=== PATIENT | male | born 1975 | race African-American/Black ===

== ENCOUNTER 2017-01-06 13:20 | Emergency (ER) | payer MEDICAID ==
--- NOTE | 2017-01-06 17:28 | Emergency Department Report ---
ED Lower Extremity HPI - General Chief Complaint: Extremity Injury, Lower Stated Complaint: LEFT KNEE PAIN Time Seen by Provider: 01/06/17 17:01 Source: patient Mode of arrival: Ambulatory Limitations: No Limitations - History of Present Illness Initial Comments: Patient here reported that he has left knee pain after falling 2 weeks ago. He said he tripped and slipped and fell into a hole. Patient reports the pain is 10 out of 10. Denies numbness or tingling to extremities. Denies any redness or swelling. He said he took [id number] medication and he got minimal relief. Pain is located to her anterior knee.. Complaint: knee injury Onset/Timin -: week(s) Injury: Knee: Left (Pain) Type of Injury: blunt Place: work Severity: severe Severity scale (0 -10): 10 Improves With: NSAID Worsens With: weight bearing, movement, palpation Context: fall Associated Symptoms: able to partially bear weight, ambulatory. denies: snap/ pop sensation, swelling, numbness, tingling Treatments Prior to Arrival: NSAIDS - Related Data Previous Rx's Medication Instructions Recorded Last Taken Type Ibuprofen [Motrin] 600 mg PO Q8H PRN #21 tablet 01/06/17 Unknown Rx Allergies Allergy/AdvReac Type Severity Reaction Status Date / Time No Known Allergies Allergy Verified 01/22/15 12:11 ED Review of Systems ROS: Stated complaint: LEFT KNEE PAIN Other details as noted in HPI Comment: All other systems reviewed and negative Constitutional: denies: chills, fever Respiratory: no symptoms reported Cardiovascular: denies: chest pain, palpitations, edema, syncope Musculoskeletal: arthralgia. denies: back pain, joint swelling Skin: denies: rash Neurological: abnormal gait (limpng lt LE). denies: headache, weakness, numbness, paresthesias ED Past Medical Hx - Past Medical History Previous Medical History?: Yes Hx Seizures: Yes Additional medical history: CHRONIC BACK PAIN - Surgical History Past Surgical History?: Yes Additional Surgical History: LEFT ARM SURGERY - Family History Family history: no significant - Social History Smoking Status: Never Smoker Substance Use Type: Non Opiate Pain - Medications Home Medications: Home Medications Medication Instructions Recorded Confirmed Last Taken Type Ibuprofen [Motrin] 600 mg PO Q8H PRN #21 tablet 01/06/17 Unknown Rx ED Physical Exam - General Limitations: No Limitations General appearance: alert, in no apparent distress - Head Head exam: Present: atraumatic, normocephalic, normal inspection - Expanded Head Exam Expanded Head exam: Absent: laceration, abrasion, contusion, hematoma, racoon eyes, crowder's sign, general tenderness, tenderness of temporal artery, CSF rhinorrhea , CSF otorrhea - Eye Eye exam: Present: normal appearance, PERRL, EOMI Pupils: Present: normal accommodation - ENT ENT exam: Present: normal exam, normal orophraynx, mucous membranes moist, TM's normal bilaterally, normal external ear exam - Neck Neck exam: Present: normal inspection, full ROM. Absent: tenderness, meningismus, lymphadenopathy - Respiratory Respiratory exam: Present: normal lung sounds bilaterally. Absent: respiratory distress - Cardiovascular Cardiovascular Exam: Present: regular rate, normal rhythm, normal heart sounds - Extremities Exam Extremities exam: Present: normal inspection, full ROM, tenderness, normal capillary refill. Absent: pedal edema, joint swelling, calf tenderness - Expanded Lower Extremity Exam Left Hip exam: Present: normal inspection, full ROM, pelvic stability. Absent: tenderness, swelling, abrasion, laceration, ecchymosis, deformity, crepidus, dislocation, erythema, external rotation, internal rotation, shortening Upper Leg exam: Present: normal inspection, full ROM. Absent: tenderness, swelling, abrasion, laceration, ecchymosis, deformity, crepidus, dislocation, erythema Knee exam: Present: normal inspection, full ROM, tenderness (anterior knee), full knee extension. Absent: swelling, abrasion, laceration, ecchymosis, deformity, crepidus, dislocation, erythema, effusion, pain w/ pronation/ supination, posterior draw sign, pain/laxity with valgus, pain/laxity with varus Lower Leg exam: Present: normal inspection, full ROM. Absent: tenderness, swelling, abrasion, laceration, ecchymosis, deformity, crepidus, dislocation, erythema, palpable cord, Carmen's sign Ankle exam: Present: normal inspection, full ROM. Absent: tenderness, swelling , abrasion, laceration, ecchymosis, deformity, crepidus, dislocation, erythema Foot/Toe exam: Present: normal inspection, full ROM. Absent: tenderness, swelling, abrasion, laceration, ecchymosis, deformity, crepidus, dislocation, erythema, amputation, puncture wound, foreign body, calcaneal tenderness, tenderness at base of 5th metatarsal, nail avulsion, subungual hematoma Neuro vascular tendon exam: Present: no vascular compromise. Absent: pulse deficit, abnormal cap refill, motor deficit, sensory deficit, tendon deficit, extremity cold to touch, pallor, abnormal 2-point discrimination, decreased fine /light touch, foot drop, peroneal nerve deficit, significant pain with passive ROM of distal joint Gait: Positive: observed and limited by pain - Neurological Exam Neurological exam: Present: alert, oriented X3, abnormal gait (Limping from knee pain), reflexes normal. Absent: motor sensory deficit - Psychiatric Psychiatric exam: Present: normal affect, normal mood - Skin Skin exam: Present: warm, dry, intact, normal color. Absent: rash ED Course Vital Signs 01/06/17 01/06/17 14:50 17:44 Temperature 98.3 F Pulse Rate 74 99 H Respiratory 20 16 Rate Blood Pressure 148/99 Blood Pressure 133/90 [Left] O2 Sat by Pulse 100 99 Oximetry - Reevaluation(s) Reevaluation #1: 01/06/17 19:13 Patient received Motrin 800 mg in emergency room for knee pain - Orthopedic Splinting/Casting Injury #1 Side: left Lower Extremity Injury Location: knee Lower Extremity Immobilizer: knee immobilizer ED Lower Extremity MDM - Radiology Data Radiology results: report reviewed xray report revealed no acute fx or dislocation - Medical Decision Making ED course: Patient status post fall with knee pain 2 weeks. Patient given Motrin 800 mg in emergency room to manage pain. See procedure note for details on splinting. I discussed with patient that although his x-ray is negative he could have ligament injury which does not appear on x-rays. Discussed with him he will need to follow-up with orthopedic doctor for further treatment and evaluation and possible MRI. She was understanding of discharge instruction discharged home in stable condition with prescription for Motrin. Critical care attestation.: If time is entered above; I have spent that time in minutes in the direct care of this critically ill patient, excluding procedure time. ED Disposition Clinical Impression: Knee pain, left anterior Disposition: DISCHARGED TO HOME OR SELFCARE Is pt being admited?: No Does the pt Need Aspirin: No Condition: Stable Instructions: Arthralgia (ED), Knee Pain (ED), Knee Exercises (GEN), Knee Immobilizer (ED) Additional Instructions: Please follow up with orthopedic doctor and keep knee immobilizer on until seen by Dr. Take medication as prescribed. You could have ligament injury so therefore need to follow-up with orthopedic doctor for possible MRI a few knee Prescriptions: Ibuprofen [Motrin] 600 mg PO Q8H PRN #21 tablet PRN Reason: Pain Referrals: RYAN ROSE MD [Staff Physician] - 01/08/17 Forms: Work/School Release Form(ED)
--- NOTE | 2017-01-06 18:15 | XRay Report ---
FINAL REPORT PROCEDURE: XR KNEE 3V LT TECHNIQUE: Left knee, three views HISTORY: fall with LT knee pain COMPARISON: No prior studies are available for comparison. FINDINGS: No fracture or dislocation is seen. No joint effusion. No focal osseous lesions are seen. IMPRESSION: No acute fracture or dislocation is identified
[2017-01-06] MEDS ORDERED: MOTRIN PO ONE (19:04)
[2017-01-06 19:34] VITALS: BP 146/96
== END 2017-01-06 19:20 | disposition home or self-care (01) ==
LOC: ED 13:20
DX: M25.562 Pain in left knee (principal); G89.29 Other chronic pain; W17.2XXA Fall into hole, initial encounter; Y93.89 Activity, other specified; Y99.9 Unspecified external cause status; Y92.89 Other specified places as the place of occurrence of the external cause